=== PATIENT | male | born 2005 | race Caucasian/White ===

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

== ENCOUNTER → 2024-12-18 15:34 | Outpatient (BNV) | payer OTHER, SELFPAY | PROVIDERS: Emergency Provider Emergency Medicine; Visit Provider Radiology Diagnostic Radiology | DX: M25.562 Pain in left knee (principal); R22.42 Localized swelling, mass and lump, left lower limb | CPT/HCPCS: 73562; 73610 ==

== ENCOUNTER 2024-12-18 16:07 | Emergency (ER) | payer OTHER, SELFPAY ==
--- NOTE | ~2024-12-18 | XR_ITS ---
CLINICAL HISTORY: pain Radiographs of the left knee, 4 views Comparison: None available Findings: There is no fracture or dislocation. No joint space narrowing or osteophytosis. Bone mineralization is normal. No knee joint effusion. No soft tissue swelling. Impression: Normal study. This document has been electronically signed by: Phoebe Flores MD on 12/18/2024 17:07:24
--- NOTE | ~2024-12-18 | XR_ITS ---
CLINICAL HISTORY: pain Radiographs of the left ankle, 3 views, 4 images Comparison: None available Findings: There is no fracture or dislocation. The ankle mortise is congruent. The joint spaces are preserved without osteophytosis. Bone mineralization is normal. Soft tissue swelling. Impression: No fracture. This document has been electronically signed by: Phoebe Flores MD on 12/18/2024 17:06:15
[2024-12-18 16:08] VITALS: BP 158/100; PULSE 68; RESP 16; TEMP 36.6; O2SAT 100; BMI 24.3
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
[2024-12-18] MEDS: cefTRIAXone sodium 500 MG, Lidocaine HCl 1 % MPF 1 ML IM (17:40)
== END 2024-12-18 17:45 | disposition home or self-care (01) ==
PROVIDERS: Emergency Provider Emergency Medicine
DX: Z20.2 Contact with and (suspected) exposure to infections with a predominantly sexual mode of transmission (principal); M25.562 Pain in left knee; Z72.51 High risk heterosexual behavior; Z72.89 Other problems related to lifestyle
CPT/HCPCS: 73562; 73610; 96372; 99281; 99284; J0696; J2003